=== PATIENT | female | born 1990 | race Caucasian/White ===

== ENCOUNTER 2022-12-17 23:24 | Emergency (ER) | payer OTHER ==
[~2022-12-17] VITALS: Ht 172.7 cm; Wt 124.7 kg
--- NOTE | 2022-12-18 00:06 | NUR ---
BIBFAMILY C/O SACRAL PAIN S/P GLF 2 DAYS AGO. -HEAD TRAUMA -LOC. PT A/OX4. TOLERATING R/A WELL WITH NO RESP DISTRESS. SAFETY MEASURES IN PLACE.
[2022-12-18] MEDS ORDERED: LIDOCAINE 5% (PATCH) 1 EA PATCH TP ONE (00:30)
[2022-12-18] MEDS ORDERED: HYDROCODONE/APAP 10/325MG TABLET PO ONE (00:30)
[2022-12-18] MEDS ORDERED: KETOROLAC TROMETHAMINE INJ 30 MG/ML VIAL IM ONE (00:30)
[2022-12-18] MEDS ORDERED: HYDROCODONE/APAP 10/325MG TABLET ONE (00:47)
[2022-12-18] MEDS ORDERED: KETOROLAC TROMETHAMINE INJ 30 MG/ML VIAL ONE (00:47)
[2022-12-18] MEDS ORDERED: CYCLOBENZAPRINE 10 MG TABLET ONE (03:24)
[2022-12-18] MEDS ORDERED: CYCLOBENZAPRINE 10 MG TABLET PO ONE (03:30)
[2022-12-18] MEDS ORDERED: IBUP-1955 PO (04:52)
[2022-12-18] MEDS ORDERED: LIDO30AD10 TP (04:52)
[2022-12-18] MEDS ORDERED: HYDR-4279 PO (04:52)
[2022-12-18] MEDS ORDERED: HYDROMORPHONE 1 MG/1 ML DISP.SYRIN ONE (04:53)
[2022-12-18] MEDS ORDERED: HYDROMORPHONE 1 MG/1 ML DISP.SYRIN SQ ONE (05:00)
--- NOTE | 2022-12-18 05:37 | NUR ---
Patient discharged to home in stable condition. Written and verbal after care instructions given. Patient verbalizes understanding of instruction. pt ambulatory with a steady gait
[2022-12-18 05:39] VITALS: BP 134/84
== END 2022-12-18 05:39 | disposition home or self-care (01) ==
LOC: ER 23:27
DX: S34.104A Unspecified injury to L4 level of lumbar spinal cord, initial encounter (principal); S34.105A Unspecified injury to L5 level of lumbar spinal cord, initial encounter; M54.50 Low back pain, unspecified; M48.061 Spinal stenosis, lumbar region without neurogenic claudication; E11.9 Type 2 diabetes mellitus without complications; F32.A Depression, unspecified; Z90.49 Acquired absence of other specified parts of digestive tract; Z79.899 Other long term (current) drug therapy; S30.0XXA Contusion of lower back and pelvis, initial encounter; W07.XXXA Fall from chair, initial encounter; Y93.89 Activity, other specified; Y92.89 Other specified places as the place of occurrence of the external cause; Y99.8 Other external cause status
CPT/HCPCS: 99284; 72131; 96372 ×2; J1885; J1170

== ENCOUNTER 2022-12-23 23:11 | Emergency (ER) | payer OTHER ==
[~2022-12-23] VITALS: Ht 172.7 cm; Wt 124.7 kg
[~2022-12-23 23:11] MED LIST: HYDR-4279 PO; IBUP-1955 PO; LIDO30AD10 TP
--- NOTE | 2022-12-23 23:11 | NUR ---
BIBFAMILY CC OF PARESTHESIA AND NUMBNESS OF ROMAN LOWER EXTREMITIES. PT TOOK IBUPROFEN AT 2PM, NO RELIEF. PLACED ON BED CORFORTABLY. VITAL SIGNS TAKEN AND RECORDED.
--- NOTE | 2022-12-23 23:22 | NUR ---
URINE SPECIMEN SENT TO LAB
[2022-12-23 23:36] VITALS: BP 133/106
[2022-12-23] MEDS ORDERED: PRED20TA PO (23:42)
[2022-12-23] MEDS ORDERED: CYCL10TA9 PO (23:42)
[2022-12-23] MEDS ORDERED: NABU-139 PO (23:42)
[2022-12-24] MEDS ORDERED: HYDROMORPHONE 1 MG/1 ML DISP.SYRIN IM ONE
[2022-12-24] MEDS ORDERED: predniSONE 20 MG TABLET PO ONE
[2022-12-24] MEDS ORDERED: CYCLOBENZAPRINE 10 MG TABLET PO ONE
[2022-12-24] MEDS ORDERED: predniSONE 20 MG TABLET ONE (00:30)
[2022-12-24] MEDS ORDERED: KETOROLAC TROMETHAMINE INJ 60 MG/2 ML VIAL IM ONE ×2 (00:30)
[2022-12-24] MEDS ORDERED: CYCLOBENZAPRINE 10 MG TABLET ONE (00:31)
[2022-12-24] MEDS ORDERED: HYDROMORPHONE 1 MG/1 ML DISP.SYRIN ONE (00:31)
--- NOTE | 2022-12-24 00:51 | NUR ---
Patient discharged to home in stable condition. Ambulatory. Written and verbal after care instructions given. Patient verbalizes understanding of instruction.
== END 2022-12-24 00:53 | disposition home or self-care (01) ==
LOC: ER 23:12
DX: M54.50 Low back pain, unspecified (principal); E11.9 Type 2 diabetes mellitus without complications; F32.A Depression, unspecified; Z90.49 Acquired absence of other specified parts of digestive tract; Z79.899 Other long term (current) drug therapy
CPT/HCPCS: 99284; 96372 ×2; J7512; J1885; J1170